=== PATIENT | male | born 1990 | race Caucasian/White ===

== ENCOUNTER → 2016-10-21 | Outpatient (REF) ==
[~2016-10-21] MED LIST: ACHD5005 PO; NAPR550T PO
--- NOTE | 2016-10-21 09:48 | Diagnostic Imaging Report ---
INDICATION: Back injury from a fall. FINDINGS: AP and lateral views of the thoracic spine show normal vertebral body height and alignment. The disc spaces are well maintained. IMPRESSION: Negative thoracic spine. Dictated by: Dictated on workstation # [id number]
--- NOTE | 2016-10-21 09:49 | Diagnostic Imaging Report ---
INDICATION: Neck injury from a fall AP and lateral views of the cervical spine show normal vertebral body height and alignment. Disc spaces are well maintained. There is no prevertebral soft tissue swelling. Odontoid is intact. IMPRESSION: Negative cervical spine Dictated by: Dictated on workstation # [id number]
== END | disposition home or self-care (01) ==
LOC: OCC 09:11
PROVIDERS: ATTEND Nurse Practitioner Family
CPT/HCPCS: 72040; 72072

== ENCOUNTER 2016-11-23 15:50 | Outpatient (RCR) | payer OTHER | END 2017-01-10 11:46 | disposition home or self-care (01) | PROVIDERS: ATTEND Nurse Practitioner Family | DX: S43.401D Unspecified sprain of right shoulder joint, subsequent encounter (principal) ==

== ENCOUNTER → 2018-09-10 | Outpatient (REF) ==
[~2018-09-10] MED LIST changes: +RT-ALBUINH IH
--- NOTE | 2018-09-10 17:08 | Diagnostic Imaging Report ---
INDICATION: Lifting injury to neck. EXAM: Cervical spine FINDINGS: AP and lateral views of the cervical spine show normal vertebral body height alignment. Disc spaces are normal. Posterior elements appear normal. There is no fracture or prevertebral soft tissue swelling. Impression: Negative cervical spine Dictated by: Dictated on workstation # [id number]
--- NOTE | 2018-09-10 17:08 | Diagnostic Imaging Report ---
INDICATION: Back injury. EXAMINATION: Thoracic spine. FINDINGS: AP and lateral views of the thoracic spine show grossly normal alignment. The disc spaces are normal. The pedicles are intact. IMPRESSION: Unremarkable thoracic spine. Dictated by: Dictated on workstation # [id number]
== END | disposition home or self-care (01) ==
LOC: RAD 15:27
PROVIDERS: ATTEND Nurse Practitioner Family
CPT/HCPCS: 72040; 72070

== ENCOUNTER 2018-09-21 14:10 | Emergency (ER) | payer OTHER ==
[~2018-09-21] VITALS: Ht 185.4 cm; Wt 104.3 kg
[~2018-09-21 14:10] MED LIST changes: -RT-ALBUINH IH
--- OUTSIDE RECORDS SUMMARY | 2018-09-21 14:14 | XMS REPORT ---
Author Author ASHLEIGH SIMS [facility] Address [address] [place] [address] Care Team Providers Care Recruiter Account Manager Name Role Phone ASHLEIGH SIMS Unavailable PROBLEMS Unknown Problems ALLERGIES No Known Allergies SOCIAL HISTORY Never Assessed PLAN OF CARE VITAL SIGNS Height 73 in 2016-07-13 Weight 238.4 lbs 2016-07-13 Temperature 99.9 degrees Fahrenheit 2016-07-13 Heart Rate 76 bpm 2016-07-13 Respiratory Rate 18 2016-07-13 BMI 31.45 kg/m2 2016-07-13 Blood pressure systolic 126 mmHg 2016-07-13 Blood pressure diastolic 76 mmHg 2016-07-13 MEDICATIONS Medication Instructions Dosage Frequency Start Date End Date Duration Status Tessalon Perles 100 mg Orally Three times a day 1 capsule as needed 8h Jun, Active Amoxicillin 500 MG Orally 3 times a day 1 capsule 8h Jun, Jun, 10 day(s) Active RESULTS Name Result Date Reference Range INFLUENZA A & B (IN HOUSE) 2016-07-13 INFLUENZA A negative INFLUENZA B negative Control + Lot # [id number] Exp date 11 25 17 PROCEDURES Procedure Date Ordered Result Body Site INFLUENZA ASSAY W/OPTIC Jul 13, 2016 IMMUNIZATIONS No Known Immunizations MEDICAL (GENERAL) HISTORY Type Description Date Surgical History jaw surgery 2006
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
--- OUTSIDE RECORDS SUMMARY | 2018-09-21 14:15 | XMS REPORT | Continuity of Care Document ---
Author Author [facility] Organization [facility] Address Unknown Phone Unavailable Care Team Providers Care Manager Trade Marketing Name Role Phone NO, LOCAL PHYSICIAN PP Unavailable Insurance Providers Payer Name Policy Number Subscriber Name Relationship [facility] [id number] Rena Corona 01 Self / Same As Patient Advance Directives Directive Response Recorded Date Advance Directives N 10/28/12 12:41pm Problems No Known Problems or Medical conditions. Social History History Response Recorded Date/Time Alcohol Use Occasionally Uses 10/28/12 12 :41pm Recreational Drug Use N 10/28/12 12:41pm Allergies, Adverse Reactions, Alerts Allergen Type Severity Reaction Last Updated No Known Drug Allergies Allergy Unknown 08/27/07 Medications Medication Dose Units Route Sig Qty Days Hydrocodone Bit/Acetaminophen (Hydrocodon-Acetaminophen 5-325) 1 Each PO Q4H PRN 20 Naproxen Sodium (Anaprox Ds) 550 Mg PO Q12H 20 Response Recorded Date/Time Status not known Unknown Results Test Date Result Interp. Ref. Range BUN/Creatinine Ratio August 27, 2007 10:55am 13 - Basophils # (Auto) August 27, 2007 10:55am 0.0 10^3/uL N 0.0-0.1 Basophils (%) (Auto) August 27, 2007 10:55am 1 % N 0-10 Blood Urea Nitrogen August 27, 2007 10:55am 13 MG/DL N 7-18 Calcium Level August 27, 2007 10:55am 9.6 MG/DL N 8.5-10.1 Carbon Dioxide Level August 27, 2007 10:55am 33 MMOL/L H 21-32 Chloride Level August 27, 2007 10:55am 102 MMOL/L N 101-110 Creatinine August 27, 2007 10:55am 1.0 MG /DL N 0.6-1.3 Eosinophils # (Auto) August 27, 2007 10:55am 0.1 10^3/uL N 0.0-0.3 Eosinophils (%) (Auto) August 27, 2007 10:55am 2 % N 0-10 Glucose Level August 27, 2007 10:55am 94 MG/DL N 70-126 Hematocrit August 27, 2007 10:55am 44 % N 40-54 Hemoglobin August 27, 2007 10:55am 15.2 G /DL N 13.3-17.7 Lymphocytes # (Auto) August 27, 2007 10:55am 1.6 X 10^3 N 1.0-4.0 Lymphocytes (%) (Auto) August 27, 2007 10:55am 28 % N 12-44 Mean Corpuscular Hemoglobin August 27, 2007 10:55am 31 PG N 25-34 Mean Corpuscular Hemoglobin Concent August 27, 2007 10:55am 35 G/DL N 32-36 Mean Corpuscular Volume August 27, 2007 10:55am 89 FL N 80-99 Mean Platelet Volume August 27, 2007 10:55am 9.2 FL N 7.4-10.4 Monocytes # (Auto) August 27, 2007 10:55am 0.4 X 10^3 N 0.0-1.0 Monocytes (%) (Auto) August 27, 2007 10:55am 8 % N 0-12 Neutrophils # (Auto) August 27, 2007 10:55am 3.7 X 10^3 N 1.8-7.8 Neutrophils (%) (Auto) August 27, 2007 10:55am 63 % N 42-75 Platelet Count August 27, 2007 10:55am 273 10^3/uL N 130-400 Potassium Level August 27, 2007 10:55am 4.5 MMOL/L N 3.6-5.0 Red Blood Count August 27, 2007 10:55am 4.90 10^6/uL N 4.35-5.85 Red Cell Distribution Width August 27, 2007 10:55am 12.4 % N 10.0-14.5 Sodium Level August 27, 2007 10:55am 138 MMOL/L N 135-145 Ur Tricyclic Antidepressants Screen August 27, 2007 11:00am Negative - Urine Amphetamines Screen August 27, 2007 11:00am Negative - Urine Barbiturates Screen August 27, 2007 11:00am Negative - Urine Benzodiazepines Screen August 27, 2007 11:00am Negative - Urine Cocaine Screen August 27, 2007 11:00am Negative - Urine Methamphetamines Screen August 27, 2007 11:00am Negative - Urine Opiates Screen August 27, 2007 11:00am Positive H - Urine Phencyclidine Screen August 27, 2007 11:00am Negative - Urine Propoxyphene Screen August 27, 2007 11:00am Negative - White Blood Count August 27, 2007 10:55am 5.9 10^3/uL N 4.3-11.0 Estimat Glomerular Filtration Rate August 27, 2007 10:55am > 60 - Urine Oxycodone Screen August 27, 2007 11:00am Negative - Urine Methadone Screen August 27, 2007 11:00am Negative - Urine Cannabinoids Screen August 27, 2007 11:00am Negative - Procedures Procedure Code Date TREAT LOWER JAW FRACTURE 23362 08/27/07 Encounters Encounter Location Date/Time Registered Emergency Room [facility] 10/28/12 12:37pm Departed Emergency Room [facility] 13/03 9:41pm
[2018-09-21] MEDS ORDERED: NS IV 1000 ML 1,000 ML IV ONE (14:24)
[2018-09-21 14:37] LABS: BASOPHILS # (AUTO) 0.2 10^3/uL (0.0-0.1); BASOPHILS % (AUTO) 2 % (0-10); EOSINOPHILS # (AUTO) 0.3 10^3/uL (0.0-0.3); EOSINOPHILS % (AUTO) 4 % (0-10); HEMATOCRIT 39 % (40-54); HEMOGLOBIN 13.7 G/DL (13.3-17.7); LYMPHOCYTES # (AUTO) 2.9 X 10^3 (1.0-4.0); LYMPHOCYTES % (AUTO) 34 % (12-44); MEAN CORPUSCULAR HEMOGLOBIN 30 PG (25-34); MEAN CORPUSCULAR HGB CONC 35 G/DL (32-36); MEAN CORPUSCULAR VOLUME 86 FL (80-99); MEAN PLATELET VOLUME 9.8 FL (7.4-10.4); MONOCYTES # (AUTO) 1.1 X 10^3 (0.0-1.0); MONOCYTES % (AUTO) 13 % (0-12); NEUTROPHILS # (AUTO) 3.9 X 10^3 (1.8-7.8); NEUTROPHILS % (AUTO) 47 % (42-75); PLATELET COUNT 227 10^3/uL (130-400); RED CELL DISTRIBUTION WIDTH 12.9 % (10.0-14.5); WHITE BLOOD COUNT 8.4 10^3/uL (4.3-11.0)
[2018-09-21 14:53] LABS: ALANINE AMINOTRANSFERASE 66 U/L (0-55); ALBUMIN 4.3 GM/DL (3.2-4.5); ALKALINE PHOSPHATASE 87 U/L (40-136); BILIRUBIN,TOTAL 0.8 MG/DL (0.1-1.0); BUN/CREATININE RATIO 15; CALCIUM 9.5 MG/DL (8.5-10.1); CARBON DIOXIDE 21 MMOL/L (21-32); CHLORIDE 106 MMOL/L (98-107); CREATININE SERUM 0.95 MG/DL (0.60-1.30); GFR ESTIMATED > 60; GLUCOSE 97 MG/DL (70-105); MAGNESIUM 2.1 MG/DL (1.8-2.4); POTASSIUM 3.9 MMOL/L (3.6-5.0); SODIUM 138 MMOL/L (135-145); TOTAL PROTEIN 6.9 GM/DL (6.4-8.2)
--- NOTE | 2018-09-21 15:03 | Diagnostic Imaging Report ---
INDICATION: Syncope, tachycardia. PA and lateral chest. FINDINGS: Heart size and pulmonary vascularity are normal. Lungs are clear. There are no effusions or pneumothoraces. IMPRESSION: Negative chest. Dictated by: Dictated on workstation # [id number]
--- NOTE | 2018-09-21 15:04 | NUR ---
UA TO LAB
[2018-09-21 15:15] LABS: TSH (THYROID ANALYZER) 1.18 UIU/ML (0.35-4.94)
[2018-09-21 15:24] LABS: AMPHETAMINE SCREEN, URINE NEGATIVE (NEGATIVE); BARBITURATE SCREEN URINE NEGATIVE (NEGATIVE); BENZODIAZEPINES SCREEN URINE NEGATIVE (NEGATIVE); CANNABINOID SCREEN, URINE NEGATIVE (NEGATIVE); COCAINE SCREEN URINE NEGATIVE (NEGATIVE); METHADONE STAT NEGATIVE (NEGATIVE); METHAMPHETAMINE SCREEN URINE S NEGATIVE (NEGATIVE); OPIATE SCREEN URINE NEGATIVE (NEGATIVE); OXYCODONE STAT NEGATIVE (NEGATIVE); PROPOXYPHENE STAT NEGATIVE (NEGATIVE); TRICYCLIC ANTIDEPRESSANTS SCRE NEGATIVE (NEGATIVE)
[2018-09-21 15:42] VITALS: BP 132/77
--- NOTE | 2018-09-21 15:47 | ED Cardiac General ---
History of Present Illness General Chief Complaint: Cardiac/General Problems Stated Complaint: HIGH HR;ARM NUMBNESS Nursing Triage Note: AMB TO ROOM FROM [facility]. [facility] CALLED AND TAKED TO [facility] HELPER THEY REPORT THAT PATIENT HR 200 ON ADMIT WHEN EKG DONE IT WAS NSR. SAT HIM UP AGAIN AND HR WAS 120 EKG DONE AGAIN WITH NSR SENT TO ER. ON ADMIT REPORTS NO PAIN AND THAT HE WENT TO [facility] FOR COUGH AND CONGESTION DID TAKE A ZYTREC THIS AM KRUNAL ANDYK PALPATIONS. Source: patient, other (verbal report from clinic) Exam Limitations: no limitations History of Present Illness Date Seen by Provider: Sep 21, 2018 Time Seen by Provider: 14:14 Initial Comments This 28 year old gentleman was referred to the ER by [facility] for reasons of tachycardia. He had been seen at [facility] today for a "cough and allergies". While there staff noted a heart rate in the 200s on a pulse oximetry. They obtained 2 EKGs that showed a heart rate near 100. They reported heart rate got up to 120s on security monitor. Rhythm was sinus. Patient denies any chest pain. He did have some diaphoresis while at [facility]. He denies palpitations. Over the past 3 or 4 days he has felt some shortness of breath and persistent dry cough. Cough is so intense that he sometimes has posttussive emesis. He has presumed the cough to be related to allergies. He has been taking Zyrtec. He denies any sputum production or hemoptysis. He does not drink alcohol, smoke tobacco, or use drugs. He does admit to sometimes using a pre-workout supplement called C4. He last took this yesterday. He also drank a monster drink yesterday. Patient denies risk factors for DVT such as recent travel, medical procedures, history of blood clot, or smoking. However, he is concerned about blood clots because his mother has had several. Allergies and Home Medications Allergies Coded Allergies: No Known Drug Allergies (Verified , 08/27/07) Patient Home Medication List Home Medication List Reviewed: Yes Review of Systems Review of Systems Constitutional: see HPI, diaphoresis EENTM: No Symptoms Reported Respiratory: See HPI Cardiovascular: See HPI Gastrointestinal: No Symptoms Reported Genitourinary: No Symptoms Reported Musculoskeletal: no symptoms reported Skin: see HPI Psychiatric/Neurological: No Symptoms Reported Endocrine: No Symptoms Reported Hematologic/Lymphatic: No Symptoms Reported Past Ofxgpyq-Qeaqrm-Boeqcv Hx Patient Social History Alcohol Use: Denies Use Recreational Drug Use: No Smoking Status: Never a Smoker Recent Foreign Travel: No Contact w/Someone Who Travel: No Recent Infectious Disease Expo: No Immunizations Up To Date Tetanus Booster (TDap): Unknown Past Medical History Surgeries: Yes (JAW) Orthopedic (Jaw plate) Respiratory: No Cardiac: No Neurological: No Genitourinary: No Gastrointestinal: No Musculoskeletal: No Endocrine: No HEENT: No Cancer: No Psychosocial: No Integumentary: No Family Medical History No Pertinent Family Hx Physical Exam Vital Signs Vital Signs - First Documented 09/21/18 14:10 Temp 98.8 Pulse 103 Resp 18 B/P (MAP) 127/69 (88) Pulse Ox 95 O2 Delivery Room Air Capillary Refill : Less Than 3 Seconds Height, Weight, BMI Height: 6'1.00" Weight: 230lbs. oz. 104.581610bc; BMI Method:Stated General Appearance: No Apparent Distress, WD/WN HEENT: PERRL/EOMI, Normal ENT Inspection Neck: Normal Inspection Respiratory: Chest Non Tender, Lungs Clear, Normal Breath Sounds, No Accessory Muscle Use, No Respiratory Distress, Other (slightly delayed expiratory phase with forced expiration) Cardiovascular: No Edema, No Murmur, Tachycardia Gastrointestinal: Normal Bowel Sounds, Non Tender, Soft Extremity: Normal Inspection, Non Tender, No Calf Tenderness, No Pedal Edema, Other (negative Daisy) Neurologic/Psychiatric: Alert, Oriented x3, No Motor/Sensory Deficits, Normal Mood/Affect, small business sales representative II-XII Norm as Tested Skin: Normal Color, Warm/Dry Progress/Results/Core Measures Results/Orders Lab Results Laboratory Tests Test 09/21/18 14:27 09/21/18 15:04 Range/Units White Blood Count 8.4 4.3-11.0 10^3/uL Red Blood Count 4.59 4.35-5.85 10^6/uL Hemoglobin 13.7 13.3-17.7 G/DL Hematocrit 39 L 40-54 % Mean Corpuscular Volume 86 80-99 FL Mean Corpuscular Hemoglobin 30 25-34 PG Mean Corpuscular Hemoglobin Concent 35 32-36 G/DL Red Cell Distribution Width 12.9 10.0-14.5 % Platelet Count 227 130-400 10^3/uL Mean Platelet Volume 9.8 7.4-10.4 FL Neutrophils (%) (Auto) 47 42-75 % Lymphocytes (%) (Auto) 34 12-44 % Monocytes (%) (Auto) 13 H 0-12 % Eosinophils (%) (Auto) 4 0-10 % Basophils (%) (Auto) 2 0-10 % Neutrophils # (Auto) 3.9 1.8-7.8 X 10^3 Lymphocytes # (Auto) 2.9 1.0-4.0 X 10^3 Monocytes # (Auto) 1.1 H 0.0-1.0 X 10^3 Eosinophils # (Auto) 0.3 0.0-0.3 10^3/uL Basophils # (Auto) 0.2 H 0.0-0.1 10^3/uL D-Dimer 0.83 H 0.00-0.49 UG/ML Sodium Level 138 135-145 MMOL/L Potassium Level 3.9 3.6-5.0 MMOL/L Chloride Level 106 98-107 MMOL/L Carbon Dioxide Level 21 21-32 MMOL/L Anion Gap 11 5-14 MMOL/L Blood Urea Nitrogen 14 7-18 MG/DL Creatinine 0.95 0.60-1.30 MG/DL Estimat Glomerular Filtration Rate > 60 BUN/Creatinine Ratio 15 Glucose Level 97 70-105 MG/DL Calcium Level 9.5 8.5-10.1 MG/DL Corrected Calcium 9.3 8.5-10.1 MG/DL Magnesium Level 2.1 1.8-2.4 MG/DL Total Bilirubin 0.8 0.1-1.0 MG/DL Aspartate Amino Transf (AST/SGOT) 35 H 5-34 U/L Alanine Aminotransferase (ALT/SGPT) 66 H 0-55 U/L Alkaline Phosphatase 87 40-136 U/L Troponin I < 0.028 <0.028 NG/ML Total Protein 6.9 6.4-8.2 GM/DL Albumin 4.3 3.2-4.5 GM/DL TSH [place] Testing 1.18 0.35-4.94 UIU/ML Urine Opiates Screen NEGATIVE NEGATIVE Urine Oxycodone Screen NEGATIVE NEGATIVE Urine Methadone Screen NEGATIVE NEGATIVE Urine Propoxyphene Screen NEGATIVE NEGATIVE Urine Barbiturates Screen NEGATIVE NEGATIVE Ur Tricyclic Antidepressants Screen NEGATIVE NEGATIVE Urine Phencyclidine Screen NEGATIVE NEGATIVE Urine Amphetamines Screen NEGATIVE NEGATIVE Urine Methamphetamines Screen NEGATIVE NEGATIVE Urine Benzodiazepines Screen NEGATIVE NEGATIVE Urine Cocaine Screen NEGATIVE NEGATIVE Urine Cannabinoids Screen NEGATIVE NEGATIVE My Orders Orders - SANTHOSH LEMUS MD Cbc With Automated Diff (09/21/18 14:24) Comprehensive Metabolic Panel (09/21/18 14:24) Drug Screen Stat (Urine) (09/21/18 14:24) Magnesium (09/21/18 14:24) Thyroid Analyzer (09/21/18 14:24) Troponin I (09/21/18 14:24) Chest Pa/Lat (2 View) (09/21/18 14:24) Monitor-Rhythm Ecg Trace Only (09/21/18 14:24) Ed Iv/Invasive Line Start (09/21/18 14:24) Ns Iv 1000 Ml (Sodium Chloride 0.9%) (09/21/18 14:24) Fibrin Degradation Products (09/21/18 15:33) Ct Angio Chest W (09/21/18 15:55) Medications Given in ED Current Medications Medications Dose Ordered Sig/Barb Route Start Time Stop Time Status Last Admin Dose Admin Sodium Chloride 1,000 ml @ 0 mls/hr Q0M ONCE IV 09/21/18 14:24 09/21/18 14:26 DC 09/21/18 14:42 1,000 MLS/HR Vital Signs/I&O 09/21/18 09/21/18 09/21/18 14:10 15:42 16:45 Temp 98.8 Pulse 103 90 98 Resp 18 18 18 B/P (MAP) 127/69 (88) 132/77 (95) 137/94 (108) Pulse Ox 95 97 98 O2 Delivery Room Air Room Air Blood Pressure Mean: 95 Progress Progress Note #1: Time: 15:44 Progress Note Patient has been asymptomatic and workup has been unremarkable. He remains mildly tachycardic with a heart rate in the 95-105 range even after administration of IV fluids. I discussed further workup with him which would include checking d-dimer. Although patient's risk factors are low, he is concerned about this due to his mother's history of multiple blood clots. He also reports having a pain in his left chest last week that was worse with inspiration. He would like to proceed with a d-dimer with the knowledge that he may need CT angiogram if it is elevated. Patient has had no arrhythmias on monitor. Progress Note #2: Progress Note D-dimer was elevated. Risks and benefits of CT angiogram were discussed with patient. Patient elected to proceed with CT angiogram. CT revealed no evidence of pulmonary emboli or other acute cardiopulmonary pathology. Initial ECG Impression Date: Sep 21, 2018 Initial ECG Impression Time: 14:14 Initial ECG Rate: 101 Initial ECG Rhythm: S.Tach Comment Sinus tachycardia with no ST elevation or depression. No abnormal intervals or axis deviation. Diagnostic Imaging Diagonstic Imaging: Xray Plain Films/CT/US/NM/MRI: chest Comments Chest x-ray viewed by me and report reviewed. See report below: NAME: RENA SEQUEIRA [facility] REC#: [id number] PT STATUS: REG ER : 1990 PHYSICIAN: SANTHOSH LEMUS MD ADMIT DATE: 09/21/18/ER Signed Date of Exam: 09/21/18 CHEST PA/LAT (2 VIEW) INDICATION: Syncope, tachycardia. PA and lateral chest. FINDINGS: Heart size and pulmonary vascularity are normal. Lungs are clear. There are no effusions or pneumothoraces. IMPRESSION: Negative chest. Dictated by: Dictated on workstation # [id number] Dict: 09/21/18 1501 Trans: 09/21/18 1539 Interpreted by: WALTER SHIPLEY MD Electronically signed by: WALTER SHIPLEY MD 09/21/18 1539 Diagonstic Imaging: CT Plain Films/CT/US/NM/MRI: chest Comments CT angiogram of the chest viewed by me and report reviewed. See report below: NAME: RENA SEQUEIRA [facility] REC#: [id number] PT STATUS: REG ER : 1990 PHYSICIAN: SANTHOSH LEMUS MD ADMIT DATE: 09/21/18/ER Draft Date of Exam:09/21/18 CT ANGIO CHEST W PROCEDURE: CT angiography of the chest with contrast. TECHNIQUE: Multiple contiguous axial images were obtained through the chest after uneventful bolus administration of intravenous contrast. 2D reconstructed CTA MIP acquisitions were also performed. Auto Exposure Controls were utilized during the CT exam to meet ALARA standards for radiation dose reduction. INDICATION: Tachycardia. Cough. COMPARISON: CT chest dated 08/11/2009. FINDINGS: There is no CT evidence of acute pulmonary embolus to the segmental division of the pulmonary arteries. Evaluation of subsegmental branches is suboptimal secondary to suboptimal opacification by the contrast bolus. There is also metallic beam hardening artifact from contrast bolus within the SVC. This does limit evaluation of the right upper lobe pulmonary arteries. Heart size is within normal limits. There is no large pericardial effusion. Thoracic aorta is normal in size and contour. No pathologically enlarged or morphologically abnormal adenopathy is seen within the mediastinum, cecilia, nor axilla. Evaluation of the lung duran demonstrates mild dependent atelectasis posteriorly and bilaterally. There is otherwise no focal consolidation, large effusion, nor pneumothorax. There is mild image degradation secondary to motion artifact as well. This may obscure a small micronodule. No dominant pulmonary parenchymal mass is identified. Bony structures show no acute abnormalities. No lytic or blastic osseous lesions are seen. Included portions of the upper abdomen show mildly prominent lymph node interposed between the portal vein and IVC that measures 1.8 x 1.4 cm. Slightly prominent 1 x 1.4 cm lymph node is also noted anterior to the left afsaneh of the diaphragm. IMPRESSION: 1. No CT evidence of acute pulmonary embolus to the segmental division of the pulmonary arteries. 2. No other acute cardiopulmonary process. 3. Mildly prominent lymph nodes noted within the included portions of the upper abdomen. These are of uncertain significance or etiology. Dictated on workstation # [id number] Dict: 09/21/18 1654 Trans: 09/21/18 1707 [id number] Interpreted by: JUAN QUINTANILLA MD Departure Impression Primary Impression: Sinus tachycardia Additional Impressions: Atypical chest pain Cough Disposition: 01 HOME, SELF-CARE Condition: Stable Departure-Patient Inst. Decision time for Depature: 17:27 Referrals: TOM HICKS (PCP) Primary Care Physician Patient Instructions: Cough in Adults, Sinus Tachycardia (DC) Add. Discharge Instructions: Drink plenty of clear liquids to stay well-hydrated. Avoid excessive use of stimulants such as caffeine, energy drinks, pre-workout supplements, diet pills , etc. For allergy symptoms you may take a long-acting uamh-igy-nuchbje allergy medication such as Claritin (loratadine), Zyrtec (cetirizine), or their generic equivalents. You may also try a nasal steroid spray such as Flonase ( fluticasone), 2 sprays in each nostril daily. For coughing fits or shortness of air, try your albuterol inhaler as prescribed. Follow-up with your primary care provider within the next couple of weeks. All discharge instructions reviewed with patient and/or family. Voiced understanding. Scripts Albuterol Sulfate (PROAIR HFA) 1 Puff Puff 2 PUFF IH Q4H PRN for COUGH, #1 PUFF 1 PUFF = 90 MCG. For coughing fits, shortness of breath, or wheezing. Prov: SANTHOSH LEMUS MD 09/21/18 Copy Copies To 1: SHIMON GORDON JOSHUA T MD Sep 21, 2018 15:47
--- NOTE | 2018-09-21 16:04 | NUR ---
DR IN ROOM MADE AWARE OF CT BEING ORDERED.
[2018-09-21 16:45] VITALS: BP 137/94
--- NOTE | 2018-09-21 17:07 | Diagnostic Imaging Report ---
PROCEDURE: CT angiography of the chest with contrast. TECHNIQUE: Multiple contiguous axial images were obtained through the chest after uneventful bolus administration of intravenous contrast. 2D reconstructed CTA MIP acquisitions were also performed. Auto Exposure Controls were utilized during the CT exam to meet ALARA standards for radiation dose reduction. INDICATION: Tachycardia. Cough. COMPARISON: CT chest dated 08/11/2009. FINDINGS: There is no CT evidence of acute pulmonary embolus to the segmental division of the pulmonary arteries. Evaluation of subsegmental branches is suboptimal secondary to suboptimal opacification by the contrast bolus. There is also metallic beam hardening artifact from contrast bolus within the SVC. This does limit evaluation of the right upper lobe pulmonary arteries. Heart size is within normal limits. There is no large pericardial effusion. Thoracic aorta is normal in size and contour. No pathologically enlarged or morphologically abnormal adenopathy is seen within the mediastinum, cecilia, nor axilla. Evaluation of the lung duran demonstrates mild dependent atelectasis posteriorly and bilaterally. There is otherwise no focal consolidation, large effusion, nor pneumothorax. There is mild image degradation secondary to motion artifact as well. This may obscure a small micronodule. No dominant pulmonary parenchymal mass is identified. Bony structures show no acute abnormalities. No lytic or blastic osseous lesions are seen. Included portions of the upper abdomen show mildly prominent lymph node interposed between the portal vein and IVC that measures 1.8 x 1.4 cm. Slightly prominent 1 x 1.4 cm lymph node is also noted anterior to the left afsaneh of the diaphragm. IMPRESSION: 1. No CT evidence of acute pulmonary embolus to the segmental division of the pulmonary arteries. 2. No other acute cardiopulmonary process. 3. Mildly prominent lymph nodes noted within the included portions of the upper abdomen. These are of uncertain significance or etiology. Dictated by: Dictated on workstation # [id number]
[2018-09-21] MEDS ORDERED: RT-ALBUINH IH (17:32)
[2018-09-21 17:37] VITALS: BP 131/65
== END 2018-09-21 17:37 | disposition home or self-care (01) ==
LOC: EDUNIT# 14:10 → ER 14:12
DX: R00.0 Tachycardia, unspecified (principal); R07.89 Other chest pain; R05 Cough
CPT/HCPCS: 36415; 71046; 71275; 80053; 80306; 83735; 84443; 84484; 85025; 85379; 93005; 93041